=== PATIENT | female | born 1955 | race Caucasian/White ===

== ENCOUNTER → 2017-03-27 | Outpatient (CLI) | payer BC | END | disposition home or self-care (01) | LOC: C.PAPS 14:13 | PROVIDERS: ATTEND Obstetrics & Gynecology | DX: N95.0 Postmenopausal bleeding (principal) ==

== ENCOUNTER → 2017-03-27 | Outpatient (CLI) | payer BC | END | disposition home or self-care (01) | LOC: C.PATHSPEC 13:55 | PROVIDERS: ATTEND Obstetrics & Gynecology | DX: N95.0 Postmenopausal bleeding (principal) ==

== ENCOUNTER → 2017-04-23 | Outpatient (CLI) | payer BC ==
--- NOTE | 2017-04-23 15:17 | MAMMOGRAPHY REPORT ---
BILATERAL DIGITAL SCREENING MAMMOGRAM WITH CAD: 04/23/2017 CLINICAL HISTORY: Routine screening examination. TECHNIQUE: Bilateral CC, MLO, XCCL and repeat left MLO views were obtained. Current study was also e valuated with a Computer Aided Detection (CAD) system. COMPARISON: Comparison is made to exams dated: 04/04/2016 mammogram, 03/30/2014 mammogram, 03/31/2015 m ammogram, 03/30/2013 mammogram, 03/25/2013 mammogram, and 03/19/2012 mammogram - [facility] enter. BREAST COMPOSITION: There are scattered areas of fibroglandular density in both breasts. FINDINGS: There is a cluster of microcalcifications in the upper outer middle one third of the right breast for which additional spot magnification views are recommended. There is a stable 4 mm nodula r asymmetry in the middle one third of the left breast along the posterior nipple line. However, two additional 4 mm nodular asymmetries are identified in the anterior subareolar and lateral middle one third of the left breast for which additional spot compression to the synthesis views and possibly u ltrasound are recommended. No other suspicious mass, architectural distortion or cluster of microcalcifications is seen bilatera llangie. IMPRESSION: ACR BI-RADS CATEGORY 0: INCOMPLETE EVALUATION: NEED ADDITIONAL IMAGING EVALUATION The cluster of microcalcifications in the upper outer quadrant of the right breast and left breast no dular asymmetries need additional imaging evaluation. The patient will be called to schedule an appointment. Approximately 10% of breast cancers are not detected with mammography. A negative mammographic report should not delay biopsy if a clinically suggestive mass is present. Amanda Dietz M.D. ay/:04/23/2017 14:47:25 Regional Retail Sales Manager: Malaika AYALA([place])(Leonor), [facility] letter sent: Addl Imaging 0 BI-RADS Code: ACR BI-RADS Category 0: Incomplete Evaluation: Need Additional Imaging Evaluation
== END | disposition home or self-care (01) ==
LOC: C.MAMM 11:50
PROVIDERS: ATTEND Obstetrics & Gynecology
DX: Z12.31 Encounter for screening mammogram for malignant neoplasm of breast (principal); R92.0 Mammographic microcalcification found on diagnostic imaging of breast; R92.8 Other abnormal and inconclusive findings on diagnostic imaging of breast

== ENCOUNTER → 2017-05-15 | Outpatient (CLI) | payer BC ==
[~2017-05-15] MED LIST: AMT50 PO; ASPI81TA28 PO; ATEN-173 PO; GABA-113 PO; HYZ/10015 PO; LEVO200T PO; SERT-234 PO; SIMV10TA2 PO
--- NOTE | 2017-05-15 13:30 | Discharge Instructions ---
Discharge Instructions Procedure Procedure Date: May 15, 2017. Reason for visit: Right Calcs, Left Mass. Discharge Discharge Date: May 15, 2017. Discharge Diagnosis: post bilateral breast biopsies Medications Restart Stopped Medication(s): May restart Aspirin tomorrow as long as not soaking through bandages Instructions Activity Recommendations: Additional Limitations (see below) Return to School/Work: no limitations Recommended Home Diet: No Limitations Provider Instructions: ACTIVITY RECOMMENDATIONS: * No lifting, pushing, pulling or exercising the affected side for three days. RETURN TO SCHOOL/WORK: * You may return to work/school after the procedure, but do not perform any strenuous activities for 24 to 48 hours. MEDICATIONS: * Tylenol (two 325 mg) every four to six hours if needed for mild pain (if not allergic to Tylenol). DIET: * Resume previous diet. SPECIAL CARE INSTRUCTIONS: * Keep biopsy site dry for 24 hours. May shower after 24 hours, but do not soak (bathe) incision. * May remove Tegaderm (plastic patch) tomorrow AFTER showering. * Leave the steri-strips on for one week. Allow the steri-strips to fall off by themselves. If not off after one week, you may remove them. You may place a Bandaid crosswise over the strips, if desired. * Apply ice 10 minutes on and 10 minutes off as needed. * Wear a bra at bedtime to sleep more comfortably for 2-3 days. * Your referring physician should have the results after approximately 5 to 7 business days. * Call for unusual bleeding, fever, drainage, etc or if you have any questions call [phone] during normal business hours or after hours call Dr Dietz, . FOLLOW UP VISIT: Follow-up with Referring Physician as scheduled. Larisa Shaikh Recommendations: Call your doctor if: * Temperature above 101 degrees * Pain not relieved by pain medicine ordered * There is increased drainage or redness from any incision * You have any unanswered questions or concerns. Your Doctors Instructions noted above were prepared by provider Amanda Dietz. Patient Signature Section: Patient Instructions Signature Page Katelin Mayershanita Patient (or Guardian) Signature/Date: I have read and understand the instructions given to me by my caregivers. Caregiver/RN/Doctor Signature/Date: The above-named patient and/or guardian has received patient instructions on this date. + Original Patient Signature Page (only) stays with chart. Please make copy for patient.
--- NOTE | 2017-05-15 15:21 | MAMMOGRAPHY REPORT ---
BILATERAL DIGITAL DIAGNOSTIC MAMMOGRAM TOMOSYNTHESIS: 05/15/2017 CLINICAL HISTORY: Status post right breast stereotactic biopsy of clustered calcifications in the upp er outer quadrant, and left breast ultrasound guided core biopsy of an indeterminate hypoechoic 5.5mm mass in the 6:00 left breast. Please refer to the reports from left breast ultrasound guided core biopsy and right breast stereotac tic biopsy performed at the same time for full detail. IMPRESSION: POST PROCEDURE IMAGING FOR MARKER PLACEMENT Please refer to the reports from left breast ultrasound guided core biopsy and right breast stereotac tic biopsy performed at the same time for full detail. Approximately 10% of breast cancers are not detected with mammography. A negative mammographic report should not delay biopsy if a clinically suggestive mass is present. Amanda Dietz M.D. ay/:05/15/2017 13:28:45 Field Operations Supervisor: Malaika Hernandes, [facility] BI-RADS Code: Post Procedure Imaging For Marker Placement
--- NOTE | 2017-05-16 15:32 | MAMMOGRAPHY REPORT ---
ULTRASOUND GUIDED BIOPSY LEFT BREAST: 05/15/2017 CLINICAL HISTORY: Tiny indeterminate subdermal hypoechoic 4.5 x 5.5 mm mass in the 6:00 periareolar s ubareolar left breast. Patient presents for ultrasound guided core biopsy. A right breast stereotac tic biopsy was performed during the same appointment for an indeterminate cluster of microcalcificati ons in the right upper outer quadrant. COMPARISON: Comparison is made to exams dated: 05/15/2017 stereotactic biopsy, 05/02/2017 ultrasound, 05/02/2017 mammogram, 04/23/2017 mammogram, 04/04/2016 mammogram, and 03/31/2015 mammogram - [facility]. PATIENT CONSENT: The procedure, risks and benefits were discussed with the patient and informed conse nt was obtained both verbally and in writing. Specific risks to this procedure include: bleeding, in fection, puncture of adjacent structure, nontarget biopsy, sampling error, pain, metal allergy and me dication reaction. PROCEDURE DESCRIPTION: A time out was performed and the left breast was agreed as the site of biopsy. The skin was prepped and draped in the usual sterile fashion. The small, 4 x 5 mm subdermal mass in the 6:00 periareolar/subareolar left breast was chosen as the target for biopsy. Subcutaneous and int raparenchymal 1% buffered lidocaine, without epinephrine, was administered as local anesthesia. A ski n incision was made. Through the incision, 3 samples were taken with a 14 gauge Achieve biopsy devic e. A ribbon shaped metallic marker was placed at the biopsy site. Hemostasis was achieved after manua l compression. The patient tolerated the procedure well and there was no immediate complication. The samples were sent to the pathology department in an appropriately labeled container. Postprocedure left CC and ML tomosynthesis images were obtained. A new ribbon-shaped biopsy marker c lip and no significant hematoma is seen in the 6:00 anterior/subareolar left breast at the site of th e tiny mass seen on ultrasound. It appears as though this biopsy marker clip aligns with the nodular asymmetry in question. IMPRESSION: ULTRASOUND GUIDED BIOPSY Status post ultrasound guided core biopsy of a small subdermal hypoechoic mass in the 6:00 periareola r/subareolar left breast, with biopsy marker placed at the site. The patient will receive notification of the biopsy results from her referring physician. Amanda Dietz M.D. ay/:05/15/2017 16:53:39 Complex Human Resources Manager: Malaika Hernandes, [facility]
--- NOTE | 2017-05-16 15:32 | MAMMOGRAPHY REPORT ---
STEREOTACTIC GUIDED BIOPSY RIGHT BREAST: 05/15/2017 CLINICAL HISTORY: Indeterminate cluster of microcalcifications in the upper outer quadrant of the rig ht breast. Patient presents for stereotactic biopsy. Ultrasound-guided core biopsy was also perform ed in the 6:00 anterior left breast during the same appointment. COMPARISON: Comparison is made to exams dated: 05/02/2017 ultrasound, 05/02/2017 mammogram, 04/23/2017 mammogram, 04/04/2016 mammogram, 03/30/2014 mammogram, and 03/30/2013 mammogram - [facility]. PATIENT CONSENT: After explaining the risks, benefits and alternatives of the procedure to the patien t, informed consent was obtained both verbally and in writing. Specific risks include: Bleeding, inf ection, puncture of adjacent structure, pain, nontarget biopsy, sampling error, metal allergy and med ication reaction. PROCEDURE DESCRIPTION: A time-out was performed and the right breast was confirmed as the site of bio psy. The patient was placed prone on the stereotactic biopsy table and the breast was placed in later almedial compression. A technical support specialist image was obtained that demonstrated the clustered microcalcifications in question. They are amenable to sterotactic biopsy. Then +15 and -15 stereo pair images were ob tained. The calcifications were targeted utilizing the coordinates obtained by the computer. The ski n was prepped with Betadine. 1% Lidocaine with and without epinipherine was administered as local ane sthesia. A small skin incision was made. Through the incision, the needle was inserted to the depth determined by the computer. 10 samples were obtained using a [place] 9-gauge vacuum-assisted biop sy device. The specimen radiograph demonstrated several vendor representatives microcalcifications, therefore , a metallic marker was placed at the biopsy site. There was no immediate complication. Hemostasis wa s achieved after several minutes of manual compression. The samples were sent to pathology in an dav ropriately labeled containers. Postprocedure CC and ML views of the right breast were obtained. There is a new dumbbell-shaped met allic biopsy marker in the right upper outer quadrant at the site of the biopsied microcalcifications . There is a 3.0 x 1.2 x 1.5 cm hematoma at the site of the biopsy and along the biopsy tract. The patient was counseled to place the area and take Tylenol for the first 24 hours and then apply heat w hile taking ibuprofen on following days if there is still pain at the site of the biopsy site and hem atoma. IMPRESSION: STEREOTACTIC GUIDED BIOPSY 1. Status post right breast stereotactic biopsy of clustered microcalcifications in the upper outer q uadrant, with biopsy marker placed at this site. 2. Ultrasound-guided core biopsy was also performed in the left breast 6:00 subareolar region during the same appointment and please refer to a separate report for full detail. The patient will receive notification of the biopsy results from her referring physician. Amanda Dietz M.D. ay/:05/15/2017 16:51:12 Yard Loader Operator: Malaika Hernandes, [facility]
== END | disposition home or self-care (01) ==
LOC: C.MAMM 12:29
PROVIDERS: ATTEND Obstetrics & Gynecology
DX: N60.91 Unspecified benign mammary dysplasia of right breast (principal); R92.0 Mammographic microcalcification found on diagnostic imaging of breast; N63.0 Unspecified lump in unspecified breast

== ENCOUNTER 2017-05-27 05:46 | Day surgery (SDC) | payer BC ==
[2017-05-16 13:01] VITALS: BMI 44.0
--- NOTE | 2017-05-16 13:29 | PAT Medication Instructions ---
Service Date May 16, 2017. Current Home Medication List Amitriptyline Hcl (Elavil), 25 MG PO HS PRN for RN Aspirin (Aspirin Ec), 81 MG PO QAM Atenolol (Tenormin), 25 MG PO QAM Gabapentin (Neurontin), 600 MG PO TID Hctz/Losartan (Hyzaar 25MG/100MG), 1 TAB PO QAM Levothyroxine Sodium (Synthroid), 200 MCG PO QAM Sertraline (Zoloft), 100 MG PO QAM Simvastatin (Zocor), 10 MG PO QAM Medication Instructions For Your Scheduled Surgery - Check with surgeon for instructions: Aspirin (Aspirin Ec), 81 MG PO QAM - Hold the following medications the morning of surgery: Hctz/Losartan (Hyzaar 25MG/100MG), 1 TAB PO QAM - Take the following medications the morning of surgery with a sip of water: Sertraline (Zoloft), 100 MG PO QAM Simvastatin (Zocor), 10 MG PO QAM Levothyroxine Sodium (Synthroid), 200 MCG PO QAM Gabapentin (Neurontin), 600 MG PO TID Atenolol (Tenormin), 25 MG PO QAM - Take the following medications as scheduled the night before surgery: Gabapentin (Neurontin), 600 MG PO TID Amitriptyline Hcl (Elavil), 25 MG PO HS PRN for RN (if needed) If you have any questions please call us at [phone] or [phone] or [phone]
[2017-05-16 14:41] LABS: BASO % 0.5 %; BASO ABS # 0.04 K/uL (0-0.2); COMPLETE YES; EOS % 2.1 %; HEMATOCRIT 41.1 % (37-47); IG% 0.3 %; LYMPH % 26.7 %; MEAN CORPUSCULAR HEMOGLOBIN 26.5 pg (25-34); MEAN CORPUSCULAR HGB CONC 31.9 g/dl (32-36); MEAN PLATELET VOLUME 9.8 fL (7.4-10.4); MONO % 8.5 %; NEUT % 61.9 %; PLATELET COUNT 274 K/uL (130-400); RED BLOOD COUNT 4.95 M/uL (4.2-5.4); WHITE BLOOD COUNT 8.63 K/uL (4.8-10.8)
[2017-05-16 14:59] LABS: BUN/CREATININE RATIO 18.1 (10-20); CALCIUM 9.6 mg/dl (8.5-10.1); CREATININE 0.79 mg/dl (0.60-1.20); POTASSIUM 3.6 mmol/L (3.5-5.1)
[~2017-05-27] VITALS: Ht 170.2 cm; Wt 128.5 kg
[2017-05-27] MEDS ORDERED: LACTATED RINGER'S 1000ML 1,000 ML IV SCH ×2 (06:00)
[2017-05-27 06:22] VITALS: BP 145/81; PULSE 71; TEMP 36.5; O2SAT 97; Ht 170.2 cm; Wt 128.5 kg
[2017-05-27] MEDS ORDERED: PROPOFOL IV EMULSION 10 MG/ML 20 ML VIAL IV ONE ×3 (06:43→07:51)
[2017-05-27] MEDS ORDERED: LIDOCAINE HCL 2% 2 ML VIAL (20MG/ML) ONE (06:43)
[2017-05-27] MEDS ORDERED: MIDAZOLAM HCL 1 MG/ML 2ML VIAL ONE (06:44)
[2017-05-27] MEDS ORDERED: FENTANYL CITRATE INJ 50 MCG/1 ML 2 ML VIAL ONE (06:44)
[2017-05-27] MEDS ORDERED: EpHEDrine SULFATE INJ 50 MG/ML AMP IV PRN (06:45)
[2017-05-27] MEDS ORDERED: HYDROmorphone INJ 1 MG/ML SYR IV PRN (06:45)
[2017-05-27] MEDS ORDERED: ATROPINE SULFATE 0.1 MG/ML 5ML SYR IV PRN (06:45)
[2017-05-27] MEDS ORDERED: FENTANYL CITRATE INJ 50 MCG/1 ML 2 ML VIAL IV PRN (06:45)
--- NOTE | 2017-05-27 07:23 | History & Physical Bridge Note ---
H&P Re-Evaluation Bridge Note: I have examined the patient, reviewed the History & Physical and in the interval since the performance of the History & Physical I have noted the following changes of clinical significance: No changes noted
[2017-05-27] MEDS ORDERED: KETOROLAC TROMETHAMINE 30 MG/ML VIAL ONE (08:29)
[2017-05-27] MEDS ORDERED: ONDANSETRON INJ 2 MG/ML 2 ML VIAL ONE (08:29)
[2017-05-27] MEDS ORDERED: DEXAMETHASONE SOD INJ 4 MG/ML VIAL ONE (08:29)
[2017-05-27] MEDS ORDERED: SODIUM CHLORIDE 0.9% 1000ML 1,000 ML IV SCH (08:36)
--- NOTE | 2017-05-27 08:36 | [facility] Operative Report ---
Operative Report Operative Date May 27, 2017. Pre-Operative Diagnosis Postmenopausal Bleeding, Abnormal ultrasound findings. Post-Operative Diagnosis same as preop, endometrial polyps Procedure(s) Performed Dilation and Currettage, Hysteroscopy, Endometrial Polypectomy Surgeon Dr. Pickett Director [facility] Surgeon(s) none Estimated Blood Loss 0 Findings uterus sounds to 7cm. saline hysteroscopic fluid deficit 230cc. polyps at least x 2 emanating from fundus and left lateral wall. ostial normal bilaterally. minimal curettings. Fluids 500 Specimens A. Endometrial Currettings and polyp Drains none Anesthesia IV sedation Complication(s) None Disposition Recovery Room / PACU Indications 61-year-old with a history of postmenopausal bleeding with office endometrial biopsy revealing fragment of polyp. Office endometrial biopsy was benign. Patient underwent saline hysterosonography revealing evidence of likely polyps. She desired surgical management. Description of Procedure Patient taken to the operating room and identified. After adequate sedation obtained the patient placed in dorso lithotomy position and prepped and draped in usual sterile fashion. Bladder drained under sterile conditions for clear yellow urine. Weighted speculum and anterior retractor placed to visualize the cervix which was grasped initially on anterior lip with an Allis clamp. Cervix sequentially dilated using Hegar dilators to 23. Diagnostic hysteroscope primed with saline media gently placed through the cervical os into the uterine cavity with the findings as noted above. Angle of the cervix at the internal os was difficult and therefore cervix regrasped with a tenaculum on the posterior lip. Given the hysteroscopic findings the myosure device was readied. The device was gently passed into the uterine cavity and uterus cleared of its contents using the myosure device. The hysteroscope was removed and the uterus was curettaged to a gritty consistency and this specimen was also sent. All instruments and retractors were removed. The patient was returned to the supine position. She was transferred to the recovery room in stable condition. All sponge lap needle counts were correct 2 I attest to the content of the Intraoperative Record and any orders documented therein. Any exceptions are noted below.
--- NOTE | 2017-05-27 08:38 | Discharge Instructions ---
Discharge Instructions Date of Service May 27, 2017. Admission Reason for Admission: Postmenopausal Bleeding Discharge Discharge Diagnosis / Problem: after surgery Discharge Goals Goal(s): Routine recovery after surgery Activity Recommendations Activity Limitations: as noted below . Instructions / Follow-Up Instructions / Follow-Up ACTIVITY RECOMMENDATIONS: * Avoid tampons, douching, hot tubs, pools, and intercourse until bleeding has stopped. * May shower as usual. * No strenuous activity for 24-48 hours. After 24-48 hours, you may do anything you feel like doing (driving and sports are okay). SPECIAL CARE INSTRUCTIONS: Special Diet: * Mild nausea may occur in the immediate post-operative period. * Take clear liquids such as tea, cola or bouillon until all nausea has subsided; you may then resume your normal diet. Special Care: * Light bleeding and vaginal spotting can last from a few days to 3-4 weeks. Call your doctor if bleeding becomes heavier than the heaviest part of your period. * Check your temperature twice a day for one week. If it goes above 100.4 degrees Fahrenheit (38.0 Celsius), notify your doctor. * Call your doctor's office for an appointment for 2-4 weeks after your surgery. FOLLOW-UP VISIT: Call your doctor's office for an appointment for 2-4 weeks after your surgery. Current Hospital Diet Patient's current hospital diet: Discharge Diet Recommended Diet: Regular Diet Procedures Procedures Performed: Dilation and Currettage, Hysteroscopy, Endometrial Polypectomy Pending Studies Studies pending at discharge: yes List of pending studies: pathology Medical Emergencies . Who to Call and When: Medical Emergencies: If at any time you feel your situation is an emergency, please call 911 immediately. . Non-Emergent Contact Non-Emergency issues call your: City Marshal . . "Provider Documentation" section prepared by Milady Pickett. . VTE Core Measure Inpt VTE Proph given/why not?: SCD's
[2017-05-27] MEDS ORDERED: IBUPROFEN 600 MG TAB PO PRN (08:45)
[2017-05-27] MEDS ORDERED: ONDANSETRON INJ 2 MG/ML 2 ML VIAL IV PRN (08:45)
[2017-05-27] MEDS ORDERED: KETOROLAC TROMETHAMINE 30 MG/ML VIAL IV. PRN (08:45)
[2017-05-27] MEDS ORDERED: OXYCODONE/ACETAMINOPHEN 5-325 TAB PO PRN ×2 (08:45)
--- NOTE | 2017-05-27 08:48 | Anesthesiology Progress Note ---
Anesthesia Post Op Note Date & Time May 27, 2017 at 08:48 Vital Signs Pain Intensity: 0 Vital Signs Past 12 Hours Date Time Temp Pulse Resp B/P (MAP) Pulse Ox O2 Delivery O2 Flow Rate FiO2 05/27/17 08:42 58 15 98 05/27/17 08:42 56 15 05/27/17 08:41 115/63 05/27/17 08:39 36.7 57 16 115/63 (86) 97 Room Air 05/27/17 08:37 62 17 05/27/17 08:37 60 17 92 05/27/17 08:36 123/60 05/27/17 08:36 123/60 05/27/17 08:34 61 13 05/27/17 08:34 61 13 98 05/27/17 08:34 61 13 98 05/27/17 08:34 61 13 05/27/17 08:31 120/58 05/27/17 08:31 120/58 05/27/17 08:29 59 15 05/27/17 08:29 56 15 100 05/27/17 08:29 59 15 05/27/17 08:29 56 15 100 05/27/17 08:26 123/65 05/27/17 08:26 123/65 05/27/17 08:24 65 05/27/17 08:24 65 05/27/17 08:24 36.0 64 18 124/68 (86) 100 Oxymask 10 05/27/17 08:24 65 100 05/27/17 08:24 65 100 05/27/17 06:22 36.5 71 18 145/81 (102) 97 Room Air Notes Mental Status: alert / awake / arousable, participated in evaluation Pt Amnestic to Procedure: Yes Nausea / Vomiting: adequately controlled Pain: adequately controlled Airway Patency, RR, SpO2: stable & adequate BP & HR: stable & adequate Hydration State: stable & adequate Anesthetic Complications: no major complications apparent Awake, doing well. VSS.
[2017-05-27 08:50] VITALS: BP 112/70; PULSE 62; TEMP 36.6; O2SAT 97
[2017-05-27 09:20] VITALS: BP 132/73; PULSE 57; TEMP 36.5; O2SAT 97
== END 2017-05-27 09:30 | disposition home or self-care (01) ==
LOC: C.ACU 05:46
PROVIDERS: ATTEND Obstetrics & Gynecology
DX: N95.0 Postmenopausal bleeding (principal); N84.0 Polyp of corpus uteri; I10 Essential (primary) hypertension; E78.5 Hyperlipidemia, unspecified; E03.9 Hypothyroidism, unspecified; Z80.0 Family history of malignant neoplasm of digestive organs

== ENCOUNTER → 2017-06-11 | Day surgery (SDC) | payer BC ==
[2017-06-05 13:41] VITALS: Ht 170.2 cm; Wt 128.5 kg
--- NOTE | 2017-06-07 10:16 | PAT Medication Instructions ---
Service Date Jun 07, 2017. Current Home Medication List Amitriptyline Hcl (Elavil), 25 MG PO HS PRN for RN Aspirin (Aspirin Ec), 81 MG PO QAM Atenolol (Tenormin), 25 MG PO QAM Gabapentin (Neurontin), 600 MG PO TID Hctz/Losartan (Hyzaar 25MG/100MG), 1 TAB PO QAM Levothyroxine Sodium (Synthroid), 200 MCG PO QAM Sertraline (Zoloft), 125 MG PO QAM Simvastatin (Zocor), 10 MG PO QAM Medication Instructions For Your Scheduled Surgery - Check with surgeon for instructions: Aspirin (Aspirin Ec), 81 MG PO QAM - Hold the following medications the morning of surgery: Hctz/Losartan (Hyzaar 25MG/100MG), 1 TAB PO QAM - Take the following medications the morning of surgery with a sip of water: Amitriptyline Hcl (Elavil), 25 MG PO HS PRN for RN Sertraline (Zoloft), 125 MG PO QAM Simvastatin (Zocor), 10 MG PO QAM Levothyroxine Sodium (Synthroid), 200 MCG PO QAM Atenolol (Tenormin), 25 MG PO QAM Gabapentin (Neurontin), 600 MG PO TID - Take the following medications as scheduled the night before surgery: Amitriptyline Hcl (Elavil), 25 MG PO HS PRN for RN Gabapentin (Neurontin), 600 MG PO TID If you have any questions please call us at [phone] or [phone] or [phone]
[~2017-06-11] VITALS: Ht 170.2 cm; Wt 128.5 kg
[~2017-06-11] MED LIST changes: +ATROPINE SULFATE 0.1 MG/ML 5ML SYR IV PRN; +BUPIVACAINE 0.5 % 5 MG/1 ML MPF 30ML VIAL ONE; +CEFAZOLIN 3000MG IV PUSH 15 ML IV SCH; +EpHEDrine SULFATE INJ 50 MG/ML AMP IV PRN; +FENTANYL CITRATE INJ 50 MCG/1 ML 2 ML VIAL IV PRN; +FENTANYL CITRATE INJ 50 MCG/1 ML 2 ML VIAL ONE; +FLUMAZENIL 0.1 MG/1 ML 10 ML VIAL IV PRN; +HYDR-5688 PO; +HYDROCODONE/ACETAMOPHEN 5/325MG TAB PO PRN; +LABETALOL HCL IV 5 MG/ML 20ML IV PRN; +LACTATED RINGER'S 1000ML 1,000 ML IV SCH; +LIDOCAINE HCL 1% 20 ML VIAL ONE; +LIDOCAINE HCL 2% 2 ML VIAL (20MG/ML) ONE; +METHYLENE BLUE 0.5% 10 ML VIAL ONE; +MIDAZOLAM HCL 1 MG/ML 2ML VIAL ONE; +NALOXONE HCL 0.4 MG/1 ML VIAL/CARP IV PRN; +ONDANSETRON INJ 2 MG/ML 2 ML VIAL IV PRN; +PROMETHAZINE HCL INJ 12.5 MG in SODIUM CHLORIDE 0.9% 50ML 50 ML IV PRN; +PROPOFOL IV EMULSION 10 MG/ML 20 ML VIAL IV ONE; +SODIUM CHLORIDE 0.9% 1000ML 1,000 ML IV SCH
--- NOTE | 2017-06-11 09:21 | Discharge Instructions-SurgCtr ---
Discharge Instructions Date of Service Jun 11, 2017. Visit Reason for Visit: Right Atypical Ductal Hyperplasia, Abnormal Mammo Discharge Discharge Diagnosis / Problem: abnl Rt mammogram Discharge Goals Goal(s): Decrease discomfort, Improve function, Improve disease control Medications Stopped Medications Name(s): nick raymond one day Activity Recommendations Activity Limitations: as noted below Lifting Limitations: no more than 25 pounds Exercise/Sports Limitations: until after follow-up appointment May Resume Sexual Activity: when tolerated Shower/Bathe: keep incision dry (may shower over incision in 2 days) Driving or Machine Use: resume 1 day after discharge Anesthesia . Post Anesthesia Instructions: If you have had General Anesthesia or IV Sedation: * Do not drive today. * Resume driving when surgeon permits. * Do not make important decisions or sign legal documents today. * Call surgeon for: 1. Temperature elevations greater than 101 degrees F. 2. Uncontrollable pain. 3. Excessive bleeding. 4. Persistent nausea and vomiting. 5. Medication intolerance (nausea, vomiting or rash). * For nausea and vomiting use only clear liquids such as: tea, soda, bouillon until nausea subsides, then gradually increase diet as tolerated. * If you have any concerns or questions, call your surgeon's office. If physician is unavailable and it is an emergency, call 911 or go to the nearest emergency room. . Instructions / Follow-Up Instructions / Follow-Up SPECIAL CARE INSTRUCTIONS: * Cover incisions and change daily for comfort/drainage. * Leave steri strips in place * May use ibuprofen for pain as tolerated. * Expect some swelling and bruising. Call your doctor if: * Temperature above 101 degrees * Pain not relieved by pain medicine ordered * There is increased drainage or redness from any incision * You have any unanswered questions or concerns [phone]. FOLLOW UP VISIT: If not already scheduled, please call the office for a follow-up visit. for 2 weeks- check up OFFICE PHONE NUMBER: Dr. Bowen Office Diet Recommendations Home Diet: resume previous diet Pending Studies Studies pending at discharge: no Medical Emergencies . Who to Call and When: Medical Emergencies: If at any time you feel your situation is an emergency, please call 911 immediately. . Non-Emergent Contact Non-Emergency issues call your: Primary Care Provider, Surgeon . . "Provider Documentation" section prepared by Jabier Bowen. .
--- NOTE | 2017-06-11 10:21 | [facility] Operative Report ---
Operative Report Operative Date Jun 11, 2017. Pre-Operative Diagnosis Atypical Ductal Hyperplasia Right Breast; Abnormal Mammogram Post-Operative Diagnosis Same Procedure(s) Performed Right Breast Biopsy With Needle Localization Surgeon Dr. Bowen Blacksmith Supervisor Surgeon(s) Jojo Perales PA-C Findings breast tissue Anesthesia local/ sedation Complication(s) None Disposition Recovery Room / PACU I attest to the content of the Intraoperative Record and any orders documented therein. Any exceptions are noted below.
[2017-06-11 10:36] VITALS: TEMP 36.3
--- NOTE | 2017-06-11 10:49 | OPERATIVE REPORT ---
DATE OF OPERATION: 06/11/2017 NAME OF OPERATION: Needle localization right breast biopsy. PREOPERATIVE DIAGNOSIS: Atypical ductal hyperplasia, right breast. POSTOPERATIVE DIAGNOSIS: Same. STAFF SURGEON: Dr. Jabier Bowen. GROCERY STOCK CLERK: Cici Perales PA-C ANESTHESIA: 1% plain lidocaine with sedation. DESCRIPTION OF PROCEDURE: The patient was brought into the operating room and placed on the operating table in supine position. Her right breast was prepped and draped in the usual fashion around a needle, which was placed laterally. Incision was made around the needle, carrying dissection down, excising the tissue around the needle and sending it for mammography. We did have calcifications within the specimen with a clip. I took additional tissue at the end of the needle medially and marked with methylene blue as the new deep margin. At this point, the deep tissue was reapproximated using 2-0 plain catgut suture and then, the skin reapproximated using subcuticular 5-0 Monocryl and Steri-Strips. Dressing applied and the patient transferred to recovery room in stable condition. As a note, my marketing support assistant helped with prepping, draping, exposing the breast tissue, excising the breast tissue and closure of the wound. I attest to the content of the Intraoperative Record and any orders documented therein. Any exception s are noted below.
--- NOTE | 2017-06-11 10:59 | Anesthesia Progress Nt - [facility] ---
Anesthesia Post Op Note Date & Time Jun 11, 2017 at 10:59 Vital Signs Pain Intensity: 0 Vital Signs Past 12 Hours Date Time Temp Pulse Resp B/P (MAP) Pulse Ox O2 Delivery O2 Flow Rate FiO2 06/11/17 10:36 36.3 64 16 107/66 (80) 97 Room Air 06/11/17 07:34 36.7 60 18 124/75 (91) 98 Room Air Notes Mental Status: alert / awake / arousable, participated in evaluation Pt Amnestic to Procedure: Yes Nausea / Vomiting: adequately controlled Pain: adequately controlled Airway Patency, RR, SpO2: stable & adequate BP & HR: stable & adequate Hydration State: stable & adequate Anesthetic Complications: no major complications apparent
[2017-06-11 11:08] VITALS: BP 112/78; PULSE 62; O2SAT 97
--- NOTE | 2017-06-11 15:10 | MAMMOGRAPHY REPORT ---
NEEDLE LOCALIZATION RIGHT BREAST: 06/11/2017 CLINICAL HISTORY: 61-year-old woman with atypical ductal hyperplasia diagnosed at stereotactic biopsy of microcalcifications in the right upper outer quadrant. She presents for preoperative needle loca lization prior to surgical excisional biopsy. COMPARISON: Comparison is made to exams dated: 05/15/2017 mammogram, 05/02/2017 ultrasound, 05/02/2017 mammogram, 04/23/2017 mammogram, 04/04/2016 mammogram, and 03/31/2015 mammogram - [facility]. PATIENT CONSENT: The risks of the procedure were explained to the patient and informed consent was o btained. The patient denied eating or taking anything this morning that would preclude anesthesia. No allergy to lidocaine. PROCEDURE DESCRIPTION: Prior spot magnification views of the right breast dated 05/02/2017, stereotac tic biopsy images from 05/15/2017 and post procedure mammograms from the same day were reviewed. The biopsied calcifications in the upper outer middle one third of the right breast and dumbbell-shaped biopsy marker clip are the intended target for preoperative localization. With the patient in the seated position, the right breast was placed in lateralmedial compression. 1 % buffered Lidocaine without epinephrine was administered as local anesthesia. A 5cm Maldonado II needl e and wire combination was inserted into the breast. Optimal positioning was confirmed and the wire w as locked in place, leaving both the needle and wire within the breast, as per surgeon's preference. The entire procedure including approach and needle length were discussed with the operating surgeon prior to surgery. The patient tolerated the procedure well and there was no immediate complication. She was sent to the operating room in satisfactory condition. The specimen radiograph demonstrates the localizing needle and wire, predominately fatty tissue with a few scattered punctate microcalcifications and the biopsy marker clip, compatible with successful p reoperative localization and subsequent surgical excision. IMPRESSION: NEEDLE LOCALIZATION Status post successful preoperative needle and wire localization for biopsy proven atypical ductal hy perplasia in the right upper outer quadrant. The imaged specimen includes the intended abnormalities . The patient will receive notification of the surgical pathology results from her referring physician. Amanda Dietz M.D. ay/:06/11/2017 12:25:23 Heavy Equipment Sales Manager: Staci BERNAL)([place]), [facility]
--- NOTE | 2017-06-11 15:10 | MAMMOGRAPHY REPORT ---
SPECIMEN: 06/11/2017 CLINICAL HISTORY: Biopsy proven atypical ductal hyperplasia in the right breast. Patient presents fo r preoperative needle localization prior to surgical excision. Please refer to the report from needle localization with imaging of the right breast performed at the same time for full detail. IMPRESSION: SPECIMEN Please refer to the report from needle localization with imaging of the right breast performed at the same time for full detail. Amanda Dietz M.D. ay/:06/11/2017 08:21:27 Bee Robber: Staci AYALA(River)(M), [facility]
== END | disposition home or self-care (01) ==
LOC: X.SURG 07:25
PROVIDERS: ATTEND Surgery
DX: N60.99 Unspecified benign mammary dysplasia of unspecified breast (principal); R92.8 Other abnormal and inconclusive findings on diagnostic imaging of breast; R92.0 Mammographic microcalcification found on diagnostic imaging of breast; I10 Essential (primary) hypertension; E78.5 Hyperlipidemia, unspecified; E03.9 Hypothyroidism, unspecified; F41.9 Anxiety disorder, unspecified; Z98.890 Other specified postprocedural states; E66.01 Morbid (severe) obesity due to excess calories; Z68.41 Body mass index [BMI] 40.0-44.9, adult; Z80.0 Family history of malignant neoplasm of digestive organs

== ENCOUNTER → 2017-11-12 | Outpatient (CLI) | payer BC ==
[~2017-11-12] MED LIST changes: -ATROPINE SULFATE 0.1 MG/ML 5ML SYR IV PRN; -BUPIVACAINE 0.5 % 5 MG/1 ML MPF 30ML VIAL ONE; -CEFAZOLIN 3000MG IV PUSH 15 ML IV SCH; -EpHEDrine SULFATE INJ 50 MG/ML AMP IV PRN; -FENTANYL CITRATE INJ 50 MCG/1 ML 2 ML VIAL IV PRN; -FENTANYL CITRATE INJ 50 MCG/1 ML 2 ML VIAL ONE; -FLUMAZENIL 0.1 MG/1 ML 10 ML VIAL IV PRN; -HYDROCODONE/ACETAMOPHEN 5/325MG TAB PO PRN; -LABETALOL HCL IV 5 MG/ML 20ML IV PRN; -LACTATED RINGER'S 1000ML 1,000 ML IV SCH; -LIDOCAINE HCL 1% 20 ML VIAL ONE; -LIDOCAINE HCL 2% 2 ML VIAL (20MG/ML) ONE; -METHYLENE BLUE 0.5% 10 ML VIAL ONE; -MIDAZOLAM HCL 1 MG/ML 2ML VIAL ONE; -NALOXONE HCL 0.4 MG/1 ML VIAL/CARP IV PRN; -ONDANSETRON INJ 2 MG/ML 2 ML VIAL IV PRN; -PROMETHAZINE HCL INJ 12.5 MG in SODIUM CHLORIDE 0.9% 50ML 50 ML IV PRN; -PROPOFOL IV EMULSION 10 MG/ML 20 ML VIAL IV ONE; -SODIUM CHLORIDE 0.9% 1000ML 1,000 ML IV SCH
--- NOTE | 2017-11-12 08:11 | DIAGNOSTIC IMAGING REPORT ---
RIGHT SHOULDER 3 VIEWS CLINICAL HISTORY: Right shoulder pain. FINDINGS: 3 views of the right shoulder are obtained. No prior studies are available for comparison at the time of dictation. The skeletal structures are osteopenic. No fracture is identified. Mild productive degenerative change is seen at the acromioclavicular joint. The glenohumeral articulation is preserved. There is evidence of calcific tendinopathy. The overlying soft tissues are otherwise normal in appearance. Imaged right lung parenchyma appears clear. IMPRESSION: 1. No acute bony abnormality is seen in the right shoulder. 2. Findings are consistent with calcific tendinopathy. Electronically signed by: John Cabrera M.D. 11/12/2017 8:09 AM Dictated Date/Time: 11/12/2017 8:08 AM
== END | disposition home or self-care (01) ==
LOC: C.RDSM 08:00
PROVIDERS: ATTEND Internal Medicine
DX: M25.511 Pain in right shoulder (principal)